=== PATIENT | female | born 1960 | race Caucasian/White ===

== ENCOUNTER 2025-08-13 06:08 | Day surgery (SDC) | payer OTHER ==
[2025-08-13 07:01] LABS: Absolute Lymphocytes (CBC) 1.1 K/uL (0.7-4.9); Hematocrit 40.2 % (36.0-45.0); Hemoglobin 13.5 g/dL (12.0-15.0); MCH 29.4 pg (27.0-35.0); MCHC 33.7 g/dL (32.0-36.0); MCV 87.5 fL (80-100); MPV 7.1 fL (7.6-11.3); Nucleated RBC Absolute Count 0.0 (0-0); Nucleated Red Blood Cells % 0.0 % (0-0); RBC Red Blood Cell Count 4.59 M/uL (3.86-4.86); White Blood Count 7.40 thou/uL (4.3-10.9)
[2025-08-13 07:18] LABS: ALT/SGPT 32.0 U/L (13-56); AST/SGOT 32.0 U/L (15-37); Albumin 3.4 g/dL (3.4-5.0); Albumin/Globulin Ratio 0.7 (1.1-1.8); Alkaline Phosphatase 159.0 U/L (45-117); Anion Gap 10.0 mEq/L (5.0-15.0); BUN Blood Urea Nitrogen 14.0 mg/dL (7-18); Globulin 4.6 g/dL (2.3-3.5); Glucose Level 99.0 mg/dL (74-106); Potassium 4.0 mEq/L (3.5-5.1)
[2025-08-13] MEDS: Ringers Lactate 1,000 ML IV ONE (07:27)
[2025-08-13] MEDS ORDERED: LIDOCAINE 1% MPF 5 ML VIAL ONE (07:50)
[2025-08-13] MEDS ORDERED: GLYCOPYRROLATE 0.2 MG/ML SYR ONE (07:50)
[2025-08-13] MEDS ORDERED: Phenylephrine HCl 10 MG/ML 1 ML VIAL ONE (07:50)
--- NOTE | 2025-08-13 07:51 | RAD REPORT ---
EXAM: Chest Single View HISTORY: 64 years Female preop COMPARISON: No prior exams FINDINGS: LUNGS/PLEURA: The lungs are clear. No pleural effusions or pneumothorax. No pulmonary edema. CARDIAC/MEDIASTINUM: The cardiac silhouette is within normal limits. UPPER ABDOMEN: No significant abnormality. BONES: No acute abnormality. LINES/TUBES/OTHER: N/A IMPRESSION: No evidence of acute cardiopulmonary disease.
[2025-08-13] MEDS ORDERED: NS 0.9% VIAL 10 ML ONE (07:52)
[2025-08-13] MEDS ORDERED: NA CHLORIDE 0.9% 100 ML ONE (07:54)
[2025-08-13 10:14] VITALS: BP 142/65; TEMP 98.6; O2SAT 99
== END 2025-08-13 09:43 | disposition home or self-care (01) ==
LOC: OR 06:08
PROVIDERS: ATTEND Surgery
PROC: 0DJD8ZZ Inspection of Lower Intestinal Tract, Via Natural or Artificial Opening Endoscopic (ICD-10-PCS; principal; 2025-08-13 08:30)
DX: Z12.11 Encounter for screening for malignant neoplasm of colon (principal); K57.30 Diverticulosis of large intestine without perforation or abscess without bleeding; K64.4 Residual hemorrhoidal skin tags; K64.8 Other hemorrhoids; Z86.0100 Personal history of colon polyps, unspecified; Z80.0 Family history of malignant neoplasm of digestive organs
CPT/HCPCS: 45378; 93005; 85025; 36415; 80053; 71045; A4216; J2704; J2003; J2371; J7120